=== PATIENT | female | born 1980 | race Caucasian/White ===

== ENCOUNTER 2017-11-13 09:34 | Emergency (ER) | END 2017-11-13 11:06 | disposition home or self-care (01) ==

== ENCOUNTER 2018-11-07 22:12 | Emergency (ER) | payer OTHER ==
[~2018-11-07] VITALS: Ht 157.5 cm; Wt 65.9 kg
[~2018-11-07 22:12] MED LIST: ACET500C5 PO; ALBU18HF INHALATION; BENZ-6 PO; CEPH-443 PO; IBUP-1544 PO; NA P133E3 PR
[2018-11-07 22:16] VITALS: Ht 157.5 cm; Wt 65.9 kg
[2018-11-08] MEDS ORDERED: CEFTRIAXONE 1 GM INJ IM ONE (01:30)
[2018-11-08 01:55] VITALS: BP 106/63; PULSE 83; RESP 18
== END 2018-11-08 01:56 | disposition home or self-care (01) ==
LOC: FTE 22:12
DX: N39.0 Urinary tract infection, site not specified (principal)
CPT/HCPCS: 36415; 74176; 76856; 80053; 81001; 81025; 82150; 83690; 85025; 87086; 96372; J0696; Z7502